=== PATIENT | male | born 1980 | race Hispanic/Latino ===

== ENCOUNTER 2019-08-30 03:41 | Emergency (ER) | payer OTHER ==
[~2019-08-30] VITALS: Ht 165.1 cm; Wt 104.3 kg
--- NOTE | 2019-08-30 04:07 | Emergency Department Note ---
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 Historian: Patient Arrival Mode: Car Onset (how long ago): hour(s) (8) Location: CHEST Quality: COUGH, SOB Radiation: Reports non-radiation Severity: mild Onset quality: sudden Duration (how long): hour(s) (8) Timing of current episode: constant Progression: unchanged Chronicity: new Context: Denies recent illness, Denies recent surgery Relieving factors: none Exacerbating factors: none Associated symptoms: Reports fever/chills, Reports shortness of breath, Reports other (BODY ACHES, ) Past Medical/Family History Physician Review I have reviewed the patient's past medical and family history. Any updates have been documented here. Past Medical History Recent Fever: Yes Clinical Suspicion of Infectio: Yes New/Unexplained Change in Ment: No Past Medical History: None Past Surgical History: None Social History Smoking Cessation: Current some day smoker Alcohol Use: Occasional Any Illegal Drug Use: No Family History Family history of heart diseas: Yes Other Last Tetanus: UTD Review of Systems Review of Systems Constitutional: Reports as per HPI EENTM: Reports no symptoms Cardiovascular: Reports no symptoms Respiratory: Reports as per HPI Gastrointestinal: Reports no symptoms Genitourinary: Reports no symptoms Musculoskeletal: Reports no symptoms Integumentary: Reports no symptoms Neurological: Reports no symptoms Psychological: Reports no symptoms Endocrine: Reports no symptoms Hematological/Lymphatic: Reports no symptoms Physical Exam Related Data Allergies: Coded Allergies: No Known Allergies (Unverified , 08/30/19) Triage Vital Signs Vital Signs Date Time Temp Pulse Resp B/P (MAP) Pulse Ox O2 Delivery O2 Flow Rate FiO2 08/30/19 03:52 99.3 104 20 122/91 98 Vital signs reviewed: Yes Physical Exam CONSTITUTIONAL Constitutional: Present well-developed, Present well-nourished HENT HENT: Present normocephalic, Present atraumatic, Present oropharynx clear/moist (OROPHARYNX ), Present nose normal, Present erythema HENT L/R: Present left ext ear normal, Present right ext ear normal EYES Eyes: Reports PERRL, Reports conjunctivae normal NECK Neck: Present ROM normal PULMONARY Pulmonary: Present effort normal, Present breath sounds normal CARDIOVASCULAR Cardiovascular: Present regular rhythm, Present heart sounds normal, Present capillary refill normal, Present normal rate GASTROINTESTINAL Abdominal: Present soft, Present nontender, Present bowel sounds normal GENITOURINARY Genitourinary: Present exam deferred SKIN Skin: Present warm, Present dry MUSCULOSKELETAL Musculoskeletal: Present ROM normal NEUROLOGICAL Neurological: Present alert, Present oriented x 3, Present no gross motor or sensory deficits PSYCHOLOGICAL Psychological: Present mood/affect normal, Present judgement normal Results Laboratory Laboratory Laboratory Tests Test 08/30/19 04:10 Influenza Virus Types A,B Antigen Negative (NEGATIVE) Group A Streptococcus Screen Positive (NEGATIVE) Lab results reviewed: Yes Imaging Imaging results reviewed: Yes Impressions EXAMINATION: CHEST SINGLE (PORTABLE) INDICATION: Short of breath, cough COMPARISON: None FINDINGS: TUBES and LINES: None. LUNGS: Normal lung volumes. Mild central bronchial wall thickening. Left perihilar and lower lung haziness No consolidations. PLEURA: No pleural effusion or pneumothorax. HEART AND MEDIASTINUM: The cardiomediastinal silhouette is unremarkable. BONES AND SOFT TISSUES: No acute osseous lesion. Soft tissues are unremarkable. UPPER ABDOMEN: No free air under the diaphragm. IMPRESSION: Findings of bronchitis. Left perihilar and lower lung haziness can be due to atelectasis or pneumonia. Signed by: Reji Sawyer DO on 08/30/2019 5:52 AM Dictated By: REJI SAWYER DO 1 Transcribed By: JACQUE on 08/30/19551 COPY TO: TRUONG SINGH MD~ Assessment & Plan Medical Decision Making MDM Patient with cough, subjective fever and chills, shortness of breath that started last night. Rapid flu, strep screen, Covid 19, chest x-ray ordered to eval for pneumonia, influenza, strep pharyngitis, coven 19, viral pneumonia Patient has positive strep screen. Covid 19 still pending. Bicillin LA 1.2 million units IM ordered. Spoke with the patient we will call him with Covid results when they return.. Assessment & Plan Final Impression: (1) Strep pharyngitis (2) Fever Depart Disposition: HOME, SELF-CARE Last Vital Signs Date Time Temp Pulse Resp B/P (MAP) Pulse Ox O2 Delivery O2 Flow Rate FiO2 08/30/19 03:52 99.3 104 20 122/91 98 TRUONG SINGH MD Aug 30, 2019 04:07
[2019-08-30 05:00] LABS: INFLUENZAE A&B ANTIGEN (RAPID) NEGATIVE (NEGATIVE)
[2019-08-30 05:01] LABS: STREPTOCOCCUS GRP A ANTIGEN POSITIVE (NEGATIVE)
[2019-08-30] MEDS ORDERED: PENICILLIN G BENZATHINE LA 1.2 MU TBX IM STA (05:48)
--- NOTE | 2019-08-30 05:55 | Diagnostic Imaging Report ---
EXAMINATION: CHEST SINGLE (PORTABLE) INDICATION: Short of breath, cough COMPARISON: None FINDINGS: TUBES and LINES: None. LUNGS: Normal lung volumes. Mild central bronchial wall thickening. Left perihilar and lower lung haziness No consolidations. PLEURA: No pleural effusion or pneumothorax. HEART AND MEDIASTINUM: The cardiomediastinal silhouette is unremarkable. BONES AND SOFT TISSUES: No acute osseous lesion. Soft tissues are unremarkable. UPPER ABDOMEN: No free air under the diaphragm. IMPRESSION: Findings of bronchitis. Left perihilar and lower lung haziness can be due to atelectasis or pneumonia. Signed by: Cornell Sawyer DO on 08/30/2019 5:52 AM
[2019-08-30 05:58] VITALS: BP 119/75
--- NOTE | 2019-08-30 06:15 | NUR ---
COVID + REPORTED TO ABRAN BELLAMY, DR. SINGH.
== END 2019-08-30 06:50 | disposition home or self-care (01) ==
LOC: ER 03:41
DX: R50.9 Fever, unspecified (principal); R05 Cough; R06.02 Shortness of breath; J02.0 Streptococcal pharyngitis; U07.1 COVID-19; F17.210 Nicotine dependence, cigarettes, uncomplicated
CPT/HCPCS: 71045; 83518; 87400; 87635; 99284; J0561

== ENCOUNTER 2019-08-30 22:25 | Emergency (ER) | payer SELFPAY ==
[~2019-08-30] VITALS: Ht 165.1 cm; Wt 104.3 kg
--- NOTE | 2019-08-30 22:31 | Emergency Department Note ---
History of Present Illnes History of Present Illness Chief Complaint: COVID PUI History of Present Illness This is a 39 year old male with h/o of positive COVID-19 virus returns to the ED for dyspnea. Historian: Patient Onset (how long ago): day(s) Radiation: Reports non-radiation Severity: mild Onset quality: gradual Duration (how long): day(s) Timing of current episode: constant Progression: unchanged Chronicity: new Previous service: tests performed, re-evaluation Past Medical/Family History Physician Review I have reviewed the patient's past medical and family history. Any updates have been documented here. Past Medical History Past Medical History: None Past Surgical History: None Social History Smoking Cessation: Never Smoker Alcohol Use: None Any Illegal Drug Use: No Other Last Tetanus: UTD Review of Systems Review of Systems Constitutional: Reports fever EENTM: Reports no symptoms Cardiovascular: Reports no symptoms Respiratory: Reports dyspnea Gastrointestinal: Reports no symptoms Genitourinary: Reports no symptoms Musculoskeletal: Reports no symptoms Integumentary: Reports no symptoms Neurological: Reports no symptoms Psychological: Reports no symptoms Endocrine: Reports no symptoms Hematological/Lymphatic: Reports no symptoms Physical Exam Related Data Allergies: Coded Allergies: No Known Allergies (Unverified , 08/30/19) Triage Vital Signs Vital Signs Date Time Temp Pulse Resp B/P (MAP) Pulse Ox O2 Delivery O2 Flow Rate FiO2 08/30/19 22:45 98.9 97 20 137/94 98 Vital signs reviewed: Yes Physical Exam CONSTITUTIONAL Constitutional: Present well-developed, Present well-nourished HENT HENT: Present normocephalic, Present atraumatic, Present oropharynx clear/moist, Present nose normal HENT L/R: Present left ext ear normal, Present right ext ear normal EYES Eyes: Reports PERRL, Reports conjunctivae normal NECK Neck: Present ROM normal PULMONARY Pulmonary: Present effort normal, Present breath sounds normal CARDIOVASCULAR Cardiovascular: Present regular rhythm, Present heart sounds normal, Present capillary refill normal, Present normal rate GASTROINTESTINAL Abdominal: Present soft, Present nontender, Present bowel sounds normal GENITOURINARY Genitourinary: Present exam deferred SKIN Skin: Present warm, Present dry MUSCULOSKELETAL Musculoskeletal: Present ROM normal NEUROLOGICAL Neurological: Present alert, Present oriented x 3, Present no gross motor or sensory deficits PSYCHOLOGICAL Psychological: Present mood/affect normal, Present judgement normal Results Imaging Imaging results reviewed: Yes Assessment & Plan Medical Decision Making MDM 39 yom presents with signs and symptoms concerning for respiratory distress . patient placed on continuos pulse oximetry. Patient known to be COVID-19 positive. Patient monitored for desaturation. CXR reviewed with patient. No signs of impending respiratory distress . Patient's disposition is discharge to home Assessment & Plan Final Impression: (1) Upper respiratory tract infection due to COVID-19 virus Depart Disposition: HOME, SELF-CARE MAYRA MARIE DO Aug 30, 2019 22:31
[2019-08-30] MEDS ORDERED: AZITHROMYCIN 500MG/NS 250 ML 250 ML IV STA (23:01)
[2019-08-30] MEDS ORDERED: ALBUTEROL SULFATE HFA 8GM INHALATION AEROSOL INH PRN (23:15)
== END 2019-08-31 02:34 | disposition home or self-care (01) ==
LOC: ER 22:25
DX: R06.00 Dyspnea, unspecified (principal); J06.9 Acute upper respiratory infection, unspecified; U07.1 COVID-19
CPT/HCPCS: 96365; 99284; J0456